=== PATIENT | female | born 1945 | race Caucasian/White ===

== ENCOUNTER 2022-07-18 20:13 | Emergency (ER) | payer MEDICARE ==
[2022-07-18] MEDS ORDERED: Labetalol 20 MG/4 ML Syringe IVPUSH ONE ×2 (20:31→21:03)
[2022-07-18] MEDS ORDERED: Diltiazem 50 MG/10 ML SDV IVPUSH ONE (20:53)
[2022-07-18] MEDS ORDERED: SODIUM CHLORIDE 0.9% IV SCH (21:00)
[2022-07-18] MEDS ORDERED: DILTIAZEM IV SCH (21:00)
[2022-07-18 21:04] LABS: CHLORIDE,CL 101 mmol/L (98-107); SODIUM,NA 139 mmol/L (136-145)
[2022-07-18 21:08] LABS: ANION GAP 12.6 mmol/L (5-15); ESTIMATED GFR 46 mL/min (>=60)
[2022-07-18] MEDS ORDERED: Potassium Chloride Riders 20 MEQ in Premix Bag 1 BAG IV ONE (21:09)
[2022-07-18] MEDS ORDERED: Amiodarone 150 MG/3 ML SDV IVPUSH ONE (21:49)
[2022-07-18] MEDS ORDERED: Potassium Chloride 20 MEQ Tab.ER PO ONE (22:10)
== END 2022-07-18 22:30 | disposition short-term general hospital (02) ==
LOC: VM.ED 20:13
DX: I48.91 Unspecified atrial fibrillation (principal); I25.10 Atherosclerotic heart disease of native coronary artery without angina pectoris; Z95.1 Presence of aortocoronary bypass graft; Z79.02 Long term (current) use of antithrombotics/antiplatelets; Z79.01 Long term (current) use of anticoagulants; Z79.899 Other long term (current) drug therapy; Z88.6 Allergy status to analgesic agent; Z88.1 Allergy status to other antibiotic agents; Z88.5 Allergy status to narcotic agent; Z88.8 Allergy status to other drugs, medicaments and biological substances
CPT/HCPCS: 80053; 84484; 85025; 93005; 96365; 96375; 96376; 99285; A9270; J3480; J3490

== ENCOUNTER 2024-04-22 15:54 | Inpatient (IN) | payer MEDICARE ==
[2024-04-22] MEDS ORDERED: Sodium Chloride 0.9% 10 ML Syringe FLUSH PRN ×2 (16:23→17:25)
[2024-04-22 16:29] LABS: BASOPHILS PERCENT AUTO 0.3 % (0.2-1.2); EOSINOPHILS ABSOLUTE AUTO 0.1 x10^3/uL (0.0-0.5); EOSINOPHILS PERCENT AUTO 0.9 % (0.0-4.0); HEMATOCRIT 40.8 % (33.0-47.0); HEMOGLOBIN 14.5 g/dL (12.0-16.0); IMMATURE GRAN ABSOLUTE AUTO 0.01 x10^3/uL (0.00-0.07); LYMPHOCYTES ABSOLUTE AUTO 2.7 x10^3/uL (1.0-4.8); LYMPHOCYTES PERCENT AUTO 36.1 % (25.0-50.0); MEAN CORPUSCULAR HEMOGLOBIN 33.9 pg (26.0-32.0); MEAN CORPUSCULAR HGB CONC 35.5 g/dL (32.0-36.0); MEAN CORPUSCULAR VOLUME 95.3 fL (78.0-93.0); MONOCYTES ABSOLUTE AUTO 0.7 x10^3/uL (0.0-0.8); MONOCYTES PERCENT AUTO 9.3 % (2.0-11.0); NEUTROPHILS ABSOLUTE AUTO 4.1 x10^3/uL (1.8-7.7); NEUTROPHILS PERCENT AUTO 53.3 % (50.0-80.0); PLATELET COUNT,PLT 236 x10^3/uL (130-400); RED BLOOD CELL COUNT 4.28 x10^6/uL (4.00-5.50); WHITE BLOOD CELL COUNT,WBC 7.6 x10^3/uL (4.0-10.0)
[2024-04-22] MEDS: Diltiazem 50 MG/10 ML SDV IVPUSH ONE ×2 (16:33→16:51)
[2024-04-22 16:38] LABS: PROTHROMBIN TIME 9.9 SEC (8.9-11.5); PTT,PARTIAL THROMBOPLSTIN TIME 25.9 SEC (21.9-33.8)
[2024-04-22 16:51] LABS: A/G RATIO 1.05; ALANINE AMINOTRANSFERASE,ALT 23 U/L (14-59); ALKALINE PHOSPHATASE 90 U/L (46-116); ASPARTATE AMNIOTRANSFERASE,AST 21 U/L (15-37); BILIRUBIN TOTAL 0.5 mg/dL (0.2-1.0); BLOOD UREA NITROGEN,BUN 26 mg/dL (7-18); CALCIUM 9.3 mg/dL (8.5-10.1); CARBON DIOXIDE,CO2 28 mmol/L (21-32); CHLORIDE,CL 100 mmol/L (98-107); CREATININE 1.3 mg/dL (0.55-1.02); EST CRCL DRUG DOSING (CG) 26.48 mL/min; GLUCOSE RANDOM 120 mg/dL (70-99); MAGNESIUM 1.2 mg/dL (1.8-2.4); PROTEIN TOTAL,TP 7.8 g/dL (6.4-8.2); SODIUM,NA 139 mmol/L (136-145); TSH ULTRASENSITIVE 1.688 uIU/mL (0.358-3.74)
[2024-04-22 16:53] LABS: ANION GAP 13.8 mmol/L (5-15); C-REACTIVE PROTEIN < 0.50 mg/dL (<=0.50); ESTIMATED GFR 42 mL/min (>=60)
[2024-04-22 16:54] LABS: POTASSIUM,K 2.8 mmol/L (3.5-5.1)
[2024-04-22] MEDS: Magnesium Sulfate/Water 4 GM in Premix Bag 1 BAG IV ONE (17:14)
[2024-04-22] MEDS: Potassium Chloride 10 MEQ Tab.ER PO ONE ×2 (17:36→21:47)
[2024-04-22] MEDS: Diltiazem 125 MG in Sodium Chloride 0.9% 100 ML IV SCH (17:37)
[2024-04-22] MEDS: Potassium Chloride Riders 20 MEQ in Premix Bag 1 BAG IV ONE (21:01)
[2024-04-22] MEDS: Acetaminophen 500 MG Tab PO PRN (21:48)
[2024-04-22] MEDS: Sotalol 80 MG Tab PO SCH (21:50)
[2024-04-23] MEDS: traMADol 50 MG Tab PO PRN (01:34)
[2024-04-23 08:02] LABS: A/G RATIO 1.06; ALBUMIN 3.5 g/dL (3.4-5.0); BILIRUBIN TOTAL 0.6 mg/dL (0.2-1.0); CALCIUM 9.1 mg/dL (8.5-10.1); CREATININE 0.9 mg/dL (0.55-1.02); EST CRCL DRUG DOSING (CG) 38.25 mL/min; MAGNESIUM 2.1 mg/dL (1.8-2.4); POTASSIUM,K 3.5 mmol/L (3.5-5.1); PROTEIN TOTAL,TP 6.8 g/dL (6.4-8.2)
[2024-04-23 08:03] LABS: ANION GAP 9.5 mmol/L (5-15)
[2024-04-23 08:10] LABS: APPEARANCE,URINE CLOUDY (CLEAR); BILIRUBIN,URINE NEGATIVE (NEGATIVE); COLOR,URINE YELLOW (YELLOW); GLUCOSE,URINE NEGATIVE (NEGATIVE); KETONES,URINE NEGATIVE (NEGATIVE); LEUKOCYTE ESTERASE,URINE LARGE (NEGATIVE); NITRITE,URINE NEGATIVE (NEGATIVE); OCCULT BLOOD,URINE TRACE-INTACT (NEGATIVE); PH,URINE 6.5 (5.0-8.0); PROTEIN,URINE NEGATIVE (NEGATIVE); UROBILINOGEN,URINE 0.2 EU/dL (0.2)
[2024-04-23 08:12] LABS: BACTERIA,URINE FEW /HPF (NOT SEEN); MUCUS,URINE FEW /LPF (NOT SEEN); SQUAMOUS EPITHELIAL CELLS,UR FEW /HPF (NOT SEEN); WBC,URINE 40-50 /HPF (NOT SEEN)
[2024-04-23] MEDS: Potassium Chloride 20 MEQ Tab.ER PO SCH (08:41)
[2024-04-23] MEDS: Clopidogrel 75 MG Tab PO SCH (08:42)
[2024-04-23] MEDS: Furosemide 20 MG Tab PO SCH (08:42)
[2024-04-23] MEDS: Allopurinol 300 MG Tab PO SCH (08:42)
[2024-04-23] MEDS: Hydrochlorothiazide/Triamterene 25-37.5 Tab PO SCH (08:43)
[2024-04-23] MEDS: Sodium Chloride 0.9% 1,000 ML IV SCH (10:32)
[2024-04-23] MEDS: Nitrofurantoin Monohydrate/Macrocrystalline 100 MG Cap PO SCH (10:32)
[2024-04-23 12:03] LABS: CREATININE 1.1 mg/dL (0.55-1.02); EST CRCL DRUG DOSING (CG) 31.29 mL/min; POTASSIUM,K 3.6 mmol/L (3.5-5.1)
[2024-04-23 12:04] LABS: ANION GAP 13.6 mmol/L (5-15)
[2024-04-23] MEDS: D-Mannose 500 MG Cap PO SCH (13:05)
[2024-04-23] MEDS ORDERED: Potassium Chloride 10 MEQ Tab.ER PO ONE ×2 (16:56→21:04)
== END 2024-04-23 14:36 | disposition short-term general hospital (02) | DRG 309 ==
LOC: VM.ED 15:54 → VM.MS 18:19
PROVIDERS: ADMIT Nurse Practitioner Family; ATTEND Family Medicine
DX: I48.91 Unspecified atrial fibrillation (principal); I48.0 Paroxysmal atrial fibrillation; I50.9 Heart failure, unspecified; I50.32 Chronic diastolic (congestive) heart failure; N30.01 Acute cystitis with hematuria; G47.33 Obstructive sleep apnea (adult) (pediatric); I11.0 Hypertensive heart disease with heart failure; E78.2 Mixed hyperlipidemia; I73.9 Peripheral vascular disease, unspecified; I95.9 Hypotension, unspecified; R55 Syncope and collapse; I27.20 Pulmonary hypertension, unspecified; R73.03 Prediabetes; I25.10 Atherosclerotic heart disease of native coronary artery without angina pectoris; Z95.1 Presence of aortocoronary bypass graft; Z95.5 Presence of coronary angioplasty implant and graft; Z85.3 Personal history of malignant neoplasm of breast; Z88.5 Allergy status to narcotic agent; Z88.1 Allergy status to other antibiotic agents; Z88.8 Allergy status to other drugs, medicaments and biological substances; Z90.49 Acquired absence of other specified parts of digestive tract; Z79.02 Long term (current) use of antithrombotics/antiplatelets; Z79.82 Long term (current) use of aspirin; Z98.890 Other specified postprocedural states; Z79.899 Other long term (current) drug therapy
CPT/HCPCS: 36415; 80048; 80053; 81001; 82550; 83735; 84443; 84484; 85025; 85610; 85730; 86140; 87086; 87088; 87186; 93005; 96365; 96368; 96376; 99223; 99238; 99285-25; A9270-GY; J3475; J3490; J7030

== ENCOUNTER 2024-09-19 15:21 | Emergency (ER) | payer MEDICARE ==
[2024-09-19] MEDS ORDERED: Sodium Chloride 0.9% 10 ML Syringe FLUSH PRN (15:46)
[2024-09-19 16:07] LABS: BASOPHILS PERCENT AUTO 0.2 % (0.2-1.2); EOSINOPHILS PERCENT AUTO 0.4 % (0.0-4.0); HEMATOCRIT 42.8 % (33.0-47.0); IMMATURE GRAN ABSOLUTE AUTO 0.03 x10^3/uL (0.00-0.07); LYMPHOCYTES ABSOLUTE AUTO 1.1 x10^3/uL (1.0-4.8); LYMPHOCYTES PERCENT AUTO 21.8 % (25.0-50.0); MEAN CORPUSCULAR VOLUME 94.1 fL (78.0-93.0); MONOCYTES ABSOLUTE AUTO 0.6 x10^3/uL (0.0-0.8); MONOCYTES PERCENT AUTO 11.5 % (2.0-11.0); NEUTROPHILS ABSOLUTE AUTO 3.3 x10^3/uL (1.8-7.7); NEUTROPHILS PERCENT AUTO 65.5 % (50.0-80.0); PLATELET COUNT,PLT 236 x10^3/uL (130-400); RED BLOOD CELL COUNT 4.55 x10^6/uL (4.00-5.50)
[2024-09-19] MEDS: Acetaminophen 325 MG Tab PO ONE (16:18)
[2024-09-19 16:27] LABS: A/G RATIO 0.73; ALANINE AMINOTRANSFERASE,ALT 53 U/L (14-59); ALBUMIN 3.2 g/dL (3.4-5.0); ALKALINE PHOSPHATASE 85 U/L (46-116); ASPARTATE AMNIOTRANSFERASE,AST 48 U/L (15-37); BILIRUBIN TOTAL 0.6 mg/dL (0.2-1.0); BLOOD UREA NITROGEN,BUN 21 mg/dL (7-18); CALCIUM 8.9 mg/dL (8.5-10.1); CARBON DIOXIDE,CO2 27 mmol/L (21-32); CHLORIDE,CL 98 mmol/L (98-107); CREATININE 1.2 mg/dL (0.55-1.02); GLUCOSE RANDOM 98 mg/dL (70-99); MAGNESIUM 1.3 mg/dL (1.8-2.4); POTASSIUM,K 3.9 mmol/L (3.5-5.1); PROTEIN TOTAL,TP 7.6 g/dL (6.4-8.2); SODIUM,NA 137 mmol/L (136-145)
[2024-09-19 16:31] LABS: ANION GAP 15.9 mmol/L (5-15); ESTIMATED GFR 46 mL/min (>=60)
[2024-09-19 17:10] LABS: APPEARANCE,URINE CLEAR (CLEAR); BILIRUBIN,URINE NEGATIVE (NEGATIVE); COLOR,URINE LIGHT YELLOW (YELLOW); GLUCOSE,URINE NEGATIVE (NEGATIVE); KETONES,URINE NEGATIVE (NEGATIVE); LEUKOCYTE ESTERASE,URINE SMALL (NEGATIVE); NITRITE,URINE NEGATIVE (NEGATIVE); OCCULT BLOOD,URINE NEGATIVE (NEGATIVE); PH,URINE 6.5 (5.0-8.0); PROTEIN,URINE TRACE mg/dL (NEGATIVE); UROBILINOGEN,URINE 0.2 EU/dL (0.2)
[2024-09-19 17:15] LABS: BACTERIA,URINE RARE /HPF (NOT SEEN); MUCUS,URINE NOT SEEN /LPF (NOT SEEN); RBC,URINE NOT SEEN /HPF (NOT SEEN); SQUAMOUS EPITHELIAL CELLS,UR MODERATE /HPF (NOT SEEN)
[2024-09-19] MEDS: Ondansetron 4 MG/2 ML SDV IVPUSH ONE (17:33)
[2024-09-19] MEDS: cefTRIAXone 1 GM Vial IVPUSH ONE (17:35)
[2024-09-19] MEDS: Take Home: Ondansetron 4 MG Tab.DIS, 5 Tab Pack PO ONE (17:41)
== END 2024-09-19 17:55 | disposition home or self-care (01) ==
LOC: VM.ED 15:21
DX: U07.1 COVID-19 (principal); N39.0 Urinary tract infection, site not specified; E83.42 Hypomagnesemia; I11.0 Hypertensive heart disease with heart failure; I50.9 Heart failure, unspecified; I25.10 Atherosclerotic heart disease of native coronary artery without angina pectoris; Z86.16 Personal history of COVID-19; Z95.1 Presence of aortocoronary bypass graft; Z79.899 Other long term (current) drug therapy; Z88.6 Allergy status to analgesic agent; Z88.5 Allergy status to narcotic agent; Z88.1 Allergy status to other antibiotic agents; Z88.8 Allergy status to other drugs, medicaments and biological substances
CPT/HCPCS: 36415; 71046; 80053; 81001; 83735; 85025; 87040; 87086; 87428-QW; 96374; 96375; 99284; 99285-25; A9270-GY; J0696; J2405; Q0162